=== PATIENT | female | born 1945 | race Asian ===

== ENCOUNTER 2018-07-14 08:14 | Outpatient (REF) | payer MEDICARE, BC, SELFPAY ==
[2018-07-14 18:04] LABS: Anion Gap 8.3 mmol/L (3-11); BUN 15 mg/dL (7-18); CO2 28.7 mmol/L (21.0-32.0); CREATININE 0.75 mg/dL (0.55-1.02); Calcium 9.1 mg/dL (8.5-10.1); Chloride 106 mmol/L (98-107); Cholesterol 184 mg/dL (50-200); Glucose 93 mg/dL (70-100); HCT 41.2 % (36.0-46.0); HDL Cholesterol 72 mg/dL (40-60); HGB 13.9 g/dL (12.0-15.5); LDL CHOLESTEROL 94 mg/dL (<100); Potassium 4.4 mmol/L (3.5-5.1); Sodium 143 mmol/L (136-145); Triglyceride 95 mg/dL (30-150)
== END 2018-07-14 08:34 ==
LOC: NCHCN 08:14
PROVIDERS: PCP Family Medicine; Visit Provider Family Medicine
DX: E78.5 Hyperlipidemia, unspecified (principal)
CPT/HCPCS: 80048; 80061; 83721; 85014; 85018

== ENCOUNTER 2018-09-30 01:14 | Outpatient (CLI) | payer MEDICARE, BC, SELFPAY ==
--- NOTE | 2018-09-30 08:45 | DI.MAMMO_ITS ---
SYMPTOMS/DIAGNOSIS: SCREENING, [facility], Z00.00 MAMMOGRAMS: Mammograms were interpreted according to the usual protocol including computer analysis with CAD system, tomosynthesis and C view imaging. The breasts are heterogeneously dense. No dominant mass or clumped microcalcification is identified in either breast. Current examination is compared with previous examinations including September 2017 and there is increased prominence of a focal area of asymmetric density with a nodular appearance seen in the lateral central portion of the right breast on CC view only. Additional mammographic views of this area are requested to include CC spot compression view of the right breast. CONCLUSION: Additional mammographic views, right breast, requested as described above. Breast ultrasound may be indicated as well depending on the results of the additional mammographic views. Category 0, breast density category D. MQSA ASSESSMENT OF FINDINGS: Incomplete: Needs additional imaging evaluation. Category 0. Patient will receive a letter notifying them of these results. BI-RADS category D. The breasts are extremely dense, which lowers the sensitivity of mammography.
--- NOTE | 2018-09-30 08:59 | DI.RAD_ITS ---
SYMPTOM/DIAGNOSIS: LOW BACK PAIN, M54.5, BACK PAIN LUMBOSACRAL SPINE: Five views were obtained. The intervertebral disc spaces appear well maintained. Mild hypertrophic spurring is noted involving the vertebral endplates and facet joints throughout the lumbar region. Note is made of a sclerotic focus in the right sacral ala measuring roughly 1 cm. in diameter. This was not present on previous radiographs of the spine of 09/2008. Although this may represent a bone island, the possibility of a sclerotic metastasis could not be excluded. Correlation with MRI or bone scan recommended for further evaluation. CONCLUSION: Degenerative changes and question new sclerotic lesion of right sacral ala. Correlation with MRI or bone scan recommended to exclude neoplastic disease. THORACIC SPINE: Two views were obtained and show mild biconvex thoracolumbar scoliosis. Mild hypertrophic spurring of the vertebral endplates is noted throughout the thoracic region and there is mild loss of height of the intervertebral discs. No other focal bony abnormality is seen. CONCLUSION: DJD of the thoracic spine.
== END 2018-09-30 01:34 ==
PROVIDERS: PCP Family Medicine; Visit Provider Family Medicine
DX: Z12.31 Encounter for screening mammogram for malignant neoplasm of breast (principal); R92.8 Other abnormal and inconclusive findings on diagnostic imaging of breast; M54.6 Pain in thoracic spine; M47.815 Spondylosis without myelopathy or radiculopathy, thoracolumbar region; M54.5 Low back pain; M89.8X8 Other specified disorders of bone, other site
CPT/HCPCS: 77063; 77067; 72072; 72110

== ENCOUNTER 2018-10-07 00:50 | Outpatient (CLI) | payer MEDICARE, BC, SELFPAY ==
--- NOTE | 2018-10-07 10:35 | DI.COMBO_ITS ---
SYMPTOMS/DIAGNOSIS: F/U ABNL MAMMO, FOCAL AREA OF ASYMMETRIC DENSITY ADDITIONAL MAMMOGRAPHIC VIEWS RIGHT BREAST AND RIGHT BREAST ULTRASOUND: Additional images are interpreted according to the usual protocol including tomosynthesis and 2D imaging. Additional mammographic views of the right breast and right breast ultrasound are interpreted in conjunction. These examinations were obtained to evaluate questionable area of asymmetric density seen on recent mammogram. Additional mammographic views fail to show a discrete mass. Breast ultrasound shows no evidence of a mass or cyst. CONCLUSION: No specific evidence of malignancy at this time. Follow up unilateral right breast mammogram recommended in 6 months. Category 3. Breast density Category C. MQSA ASSESSMENT OF FINDINGS: Probably benign. Six month follow-up recommended. Category 3. Patient will receive a letter notifying them of these results. Bi-RADS category C. The breasts are heterogeneously dense, which may obscure small masses.
== END 2018-10-07 01:10 ==
PROVIDERS: PCP Family Medicine; Visit Provider Family Medicine
DX: Z12.31 Encounter for screening mammogram for malignant neoplasm of breast (principal); R92.8 Other abnormal and inconclusive findings on diagnostic imaging of breast; N64.59 Other signs and symptoms in breast
CPT/HCPCS: 76642; 77063; 77067

== ENCOUNTER 2018-10-14 00:18 | Outpatient (CLI) | payer MEDICARE, BC, SELFPAY ==
[2018-10-14] MEDS: Gadoterate meglumine 20 ML VIAL 9 ML IVP (09:50)
--- NOTE | 2018-10-14 10:10 | DI.MRI_ITS ---
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 Comparison x-ray is 09/30/18. Comparison DEXA scans are 07/17/14 and 07/01/11. Comparison x-ray of the lumbar spine is 09/27/08. The round sclerotic focus seen in the right sacrum on the x-ray from 09/30/18 can also be visualized on the DEXA scan from 07/17/14. On the current MRI examination the lesion shows low signal on both the T 1 and T 2 weighted images and shows no evidence of enhancement. There is normal marrow signal in the sacrum. The sacroiliac joints appear well maintained. The finding is most suggestive of benign lesion consistent with a bone island. No other similar lesions are appreciated. There is a nonspecific ovoid 0.9 cm lesion in the left sacral ala which shows decreased signal on T 1 and increased signal on T 2 weighted images. It shows increased signal on the post contrast T 2 weighed image. This finding is nonspecific. IMPRESSION: 1. Low T 1 and T 2 weighted round image in the right sacral ala which corresponds to the radiographic finding and is most suggestive of a benign lesion such as bone island. 2. Nonspecific 0.9 cm lesion seen in the left sacral ala. Bone scan should be considered for further evaluation.
== END 2018-10-14 00:38 ==
PROVIDERS: PCP Family Medicine; Visit Provider Family Medicine
DX: M53.3 Sacrococcygeal disorders, not elsewhere classified (principal); M89.9 Disorder of bone, unspecified; R93.7 Abnormal findings on diagnostic imaging of other parts of musculoskeletal system
CPT/HCPCS: 72197

== ENCOUNTER 2018-10-29 00:19 | Outpatient (CLI) | payer MEDICARE, BC, SELFPAY ==
--- NOTE | 2018-10-29 10:00 | DI.NM_ITS ---
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 Comparison MRI is 10/14/18 and x-ray is 09/30/18. There is normal activity seen in the kidneys and urinary bladder. No abnormal increased radiotracer uptake is seen in the sacrum. There is a focus of increased radiotracer uptake seen in the right superior pubic ramus. There is a focus of increased radiotracer uptake seen in the right mid cervical spine, which is likely degenerative. No other abnormal radiotracer uptake is seen in the axial or appendicular skeleton. Increased radiotracer uptake in the shoulder is likely degenerative in nature. IMPRESSION: 1. No significant increased radiotracer uptake in the sacrum. 2. Focus of increased radiotracer uptake in the right superior pubic ramus. Please correlate with x-ray of the pelvis. This area was not included on the MRI of the pelvis or the x-ray of the lumbar spine.
--- NOTE | 2018-10-31 14:57 | DI.VRAD_ITS ---
EXAM: NM Bone and/or Joint, Whole Body EXAM DATE/TIME: 10/29/2018 2:06 PM CLINICAL HISTORY: 72 years old, female; Signs and symptoms; Other: Disorder of pelvic girdle TECHNIQUE: Nuclear bone scan was obtained following the IV administration of 25.1 mCi of [id number]. Anterior and posterior whole body images were then obtained at 2 hours. COMPARISON: No relevant prior studies available. FINDINGS: Increased activity in the right cervical spine most likely degenerative. Increased tracer activity involving the right superior pelvic ramus most likely representing a nondisplaced fracture. Correlation with repeat plain radiography may be helpful. No other abnormal tracer activity. Normal renal activity. IMPRESSION: Findings suggesting a nondisplaced fracture of the right superior pubic ramus. Dictated and Authenticated by: Fidel Montoya MD. Ordering:BEAU Garcia MD
== END 2018-10-29 00:39 ==
PROVIDERS: PCP Family Medicine; Visit Provider Family Medicine
DX: M89.8X8 Other specified disorders of bone, other site (principal); M81.0 Age-related osteoporosis without current pathological fracture
CPT/HCPCS: 78306

== ENCOUNTER 2018-11-12 00:59 | Outpatient (CLI) | payer MEDICARE, BC, SELFPAY ==
--- NOTE | 2018-11-12 08:13 | DI.RAD_ITS ---
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 There is no change in the sclerotic focus in the right sacrum which may represent an ostosis. The sacroiliac joints and symphysis pubis are intact. No suspicious lytic lesions are seen. Soft tissues are unremarkable. IMPRESSION: No acute abnormality. No evidence of an acute or healing fracture or dislocation.
== END 2018-11-12 01:19 ==
PROVIDERS: PCP Family Medicine; Visit Provider Family Medicine
DX: M89.8X8 Other specified disorders of bone, other site (principal)
CPT/HCPCS: 72170

== ENCOUNTER 2019-04-04 00:14 | Outpatient (CLI) | payer MEDICARE, BC, SELFPAY ==
--- NOTE | 2019-04-04 13:59 | DI.MAMMO_ITS ---
SYMPTOMS/DIAGNOSIS: 6 MO F/U ABNL RT MAMMOGRAM RIGHT MAMMOGRAM: Mammograms were interpreted according to the usual protocol including computer analysis with CAD system, tomosynthesis and C view imaging. Today's mammogram was obtained to follow area of questionable asymmetric density of the central portion of the right breast seen on CC view of previous mammogram of September 2018. The findings appear essentially unchanged on today's examination. No new mass or clumped microcalcification seen. CONCLUSION: No specific evidence of malignancy at this time. I would suggest that routine screening examinations resume with a bilateral mammogram in 6 months. Category 3. Breast density Category C. MQSA ASSESSMENT OF FINDINGS: Probably benign. Six month follow-up recommended. Category 3. Patient will receive a letter notifying them of these results Bi-RADS category C. The breasts are heterogeneously dense, which may obscure small masses.
== END 2019-04-04 00:34 ==
PROVIDERS: PCP Family Medicine; Visit Provider Family Medicine
DX: Z12.31 Encounter for screening mammogram for malignant neoplasm of breast (principal); R92.8 Other abnormal and inconclusive findings on diagnostic imaging of breast
CPT/HCPCS: 77061; 77065; G0279

== ENCOUNTER 2019-07-18 14:36 | Outpatient (REF) | payer MEDICARE, BC, SELFPAY ==
[2019-07-18 21:58] LABS: Abs Immature Grans 0.01 k/cumm (0.0-0.09); Absolute Basophil Count 0.03 k/cumm (0.0-0.2); Absolute Eosinophil Count 0.08 k/cumm (0.0-0.7); Absolute Lymphocyte Count 1.66 k/cumm (1.2-3.4); Absolute Monocyte Count 0.48 k/cumm (0.11-0.7); Absolute Neutrophil Count 3.14 k/cumm (1.2-6.7); Basophils % 0.6; Eosinophils % 1.5; HCT 38.1 % (36.0-46.0); HGB 12.8 g/dL (12.0-15.5); Immature Grans % 0.2; Lymphocytes % 30.7; Mean Corp. HGB Concentration 33.6 g/dL (32.0-36.0); Mean Corpuscular Hemoglobin 33.3 pg (27.0-33.0); Mean Corpuscular Volume 99.2 fL (80-95); Mean Platelet Volume 10.2 fL (8.0-11.0); Monocytes % 8.9; Neutrophils % 58.1; Platelet Count 222 x1000/uL (130-400); RBC 3.84 m/cumm (4.00-5.20); RBC Distribution Width 12.5 % (11.7-14.6)
[2019-07-18 22:19] LABS: ALT 18 U/L (14-59); AST 16 U/L (15-37); Albumin 3.8 g/dL (3.4-5.0); Alkaline Phosphatase 68 U/L (46-116); Amylase 84 U/L (25-115); Anion Gap 9.1 mmol/L (3-11); BUN 18 mg/dL (7-18); Bilirubin, Total 0.3 mg/dL (0.2-1.0); CO2 27.9 mmol/L (21.0-32.0); CREATININE 0.69 mg/dL (0.55-1.02); Calcium 8.8 mg/dL (8.5-10.1); Chloride 108 mmol/L (98-107); Glucose 150 mg/dL (74-106); Lipase 231 U/L (73-393); Potassium 3.9 mmol/L (3.5-5.1); Sodium 145 mmol/L (136-145); Total Protein 6.5 g/dL (6.4-8.2)
== END 2019-07-18 14:56 ==
LOC: NCHCN 14:36
PROVIDERS: PCP Family Medicine; Visit Provider Physician Assistant Medical
DX: R11.0 Nausea (principal)
CPT/HCPCS: 80053; 83690; 82150; 85025

== ENCOUNTER 2019-07-25 00:54 | Outpatient (CLI) | payer MEDICARE, BC, SELFPAY ==
--- NOTE | 2019-07-25 08:08 | DI.US_ITS ---
EXAM: US ABDOMEN CLINICAL HISTORY: NAUSEA,R11.0 TECHNIQUE: Ultrasound abdomen performed using standard protocol. FINDINGS: LIVER: There is a 1.5 x 1 x 1.3 centimeter simple cyst in the right lobe of the liver. The liver is otherwise unremarkable. There is hepatopetal flow through the portal vein. GALLBLADDER: No evidence of cholelithiasis. No evidence of wall thickening. No pericholecystic fluid identified. KIDNEYS: Kidneys are symmetric in size. No evidence of renal calculi. No evidence of hydronephrosis. No renal mass or cyst identified. BILIARY SYSTEM: Common bile duct measures 3.4 millimeters. No intrahepatic biliary ductal dilation. LE'S SIGN: Negative. PANCREAS: Normal where visualized. SPLEEN: Not enlarged. ABDOMINAL AORTA AND IVC: Visualized portions normal caliber. ASCITES: None seen. IMPRESSION: 1.5 centimeter simple cyst in the right lobe of the liver. Otherwise unremarkable abdominal ultrasou nd.
== END 2019-07-25 01:14 ==
PROVIDERS: PCP Family Medicine; Visit Provider Physician Assistant Medical
DX: K76.89 Other specified diseases of liver (principal); R11.0 Nausea
CPT/HCPCS: 76700

== ENCOUNTER → 2019-10-11 08:53 | Outpatient (BNVA) | payer MEDICARE, BC, SELFPAY | PROVIDERS: PCP Family Medicine; Referring Provider Family Medicine; Visit Provider Surgery | DX: R11.0 Nausea (principal) | CPT/HCPCS: 99202; 99213 ==

== ENCOUNTER 2019-10-12 07:57 | Day surgery (SDC) | payer MEDICARE, BC, SELFPAY ==
[2019-10-12 08:10] VITALS: BP 157/78; PULSE 72; RESP 18; TEMP 36.6; O2SAT 99
[2019-10-12] MEDS: Lactated Ringers 1,000 ML 80 ML IV (08:27)
--- NOTE | 2019-10-12 08:29 | ENDO_ITS ---
Date of service: 10/12/19 Time of Service: 08:59 Endoscopy Report DATE OF PROCEDURE: 10/12/19 PRE-OP DIAGNOSIS: Intermittent Abdominal discomfort and Nausea POST-OP DIAGNOSIS: other (Gastritis, GAstric polyps and esophagitis) PROCEDURE: EGD with biopsies SURGEON: Nadira Pfeiffer ANESTHESIA: other (General/ ASA 2/ Surinder Moran CRNA) ESTIMATED BLOOD LOSS: 4 PATHOLOGY: other (GAstric bx, gastric polyps bx, GE junction bx) COMPLICATIONS: None DISPOSITION: same day INDICATIONS: Mrs. Mccoy is a pleasant 73-year-old female who comes to the office today to discuss an upper endoscopy. She tells me that April 23 she felt nauseated and did not want to eat. She did not have any vomiting. She could eat and sometimes food would make her nausea go away other times it would not. She continues to have the same symptoms on and off. Some days are very good and she has no symptoms at all and other days she feels nauseated all day. She has no pain. She denies any changes in bowel habits, increased gas or burping. She tells me that she had epigastric pain about 4 years ago and had an upper endoscopy done in [place] which showed some small polyps which were removed other than that everything looked fine. She was recently placed on omeprazole. Some days she thinks it might help a little bit but then other days it does not seem to be doing anything. She has lost weight but it has been a slow weight loss over the last 5 to 6 years. At first she thought it was due to increased stress when her daughter and family moved in with her and her . They live in their home for a year but that was 2 years ago. She does not have any other symptoms. She tells me that she did have an ultrasound done as well which was unremarkable. Risks, benefits and complications have been reviewed. Complications include but are not limited to bleeding, pain, perforation, sore throat, aspiration, and adverse reaction to the medications. Questions were entertained and answered to their satisfaction and they wished to proceed. No guarantees were given or implied. FINDINGS: Inflammation in the antrum. Multiple polyps in the stomach. All benign appearing. Inflammation in the distal esophagus and scarring noted PROCEDURE DESCRIPTION: After informed consent was obtained the patient was take to the procedure room and placed in a supine position. Monitors were applied and a time out was done. The patients name, date of , procedure type, allergies to medications and metal in their body was reviewed. A bite block was placed and the patient was sedated. Once sedated and comfortable the gastroscope was advanced through the oropharynx which was grossly normal into the esophagus. The proximal and mid-esophagus were normal. In the distal esophagus there was inflammation and a Schatzki's ring noted. The scope was advanced into the stomach and through the pylorus into the 3rd portion of the duodenum. The duodenum was noted to be normal. The scope was retracted back into the stomach. There was mild inflammation noted at the pylorus and in the antrum. Biopsies were done to rule out H. pylori. There were no ulcers. The scope was retro-flexed. There was no inflammation noted in the cardia and fundus . There was no hiatal hernia noted. There were multiple small benign fundic polyps throughout the stomach. Random biopsies of some of the polyps were done. The scope was retracted back into the esophagus and biopsies were done of the GE junction to rule out Erazo's. There was mild inflammation and a Schatzki's ring was noted. The GE junction was at 35 cm. The scope was removed and the patient was woken up and taken back to [facility] in stable condition. Follow up: 2-3 weeks in the office. I will add Carafate for 2 weeks and see if that helps as well as increase the dose of the omeprazole.
--- NOTE | 2019-10-12 08:30 | PDOC.DSDIS_ITS ---
Discharge Plan Disposition Patient Disposition: HOME Condition: Good Discharge Details Reason For Visit: Intermittent Abdominal discomfort and nausea Attending Provider: Nadira Pfeiffer Primary Care Provider: Radha Maria V Home Meds and New Rx's Prescriptions: New omeprazole 40 mg capsule,delayed release(DR/EC) 40 mg PO DAILY Qty: 30 RF: 0 sucralfate [Carafate] 1 gram tablet 1 gm PO QID Qty: 56 RF: 0 Continued metoprolol succinate [Toprol XL] 25 mg tablet extended release 24 hr 25 mg PO DAILY RF: 0 atorvastatin [Lipitor] 10 MG tablet 5 mg PO DAILY Qty: 1 RF: 0 calcium carbonate [Calcium 600] 600 MG tablet 600 mg PO DAILY Qty: 1 RF: 0 cholecalciferol (vitamin D3) 1,000 UNIT capsule 1,000 unit PO DAILY Qty: 1 RF: 0 Fish Oil 1 EACH capsule 2 ea PO DAILY Qty: 2 RF: 0 GLUCOSAMINE \T\ CHONDROITIN CAP 1 EACH capsule 1 ea PO DAILY Qty: 1 RF: 0 cyanocobalamin (vitamin B-12) 2,500 MCG tablet 2,500 mcg PO DAILY RF: 0 zoledronic fuka-ijrhkuoj-mqtle [Reclast] 5 MG/100 ML piggyback 5 mg IV once a year RF: 0 Discontinued omeprazole 20 mg capsule,delayed release(DR/EC) 20 mg PO DAILY RF: 0 Discharge Instructions Instructions: Gastritis (DC), Diet for Stomach Ulcers and Gastritis (GEN), Esophagitis (DC) Additional Instructions: Findings: Mild inflammation of the stomach and esophagus Benign polyps in the stomach Follow up: 2 weeks Medications: Increase your Omeprazole to 40 mg daily (new prescription sent in) Carafate 1 g 30 minutes before breakfast, lunch and dinner and at bedtime for 2 weeks Please call if you develop: fevers >101.5 Nausea or Vomiting Abdominal pain that is not transient DAY SURGERY UNIT POST ENDOSCOPY INSTRUCTIONS 1. Because there will be medication in your system for the next 24 hours, you may feel a little sleepy. Your coordination will be affected. Therefore: a. Do not drive or operate dangerous equipment for 24 hours. b. Do not drink alcohol beverages for 24 hours (not even beer). c. Plan to go home and rest for the day. 2. Generally there are no restrictions on your activity after a day or so has gone by, but you may feel a bit fatigued for a few days. 3 After you arrive home you may have a light meal and return to a normal diet as you can tolerate it without feeling sick to your stomach. 4. After surgery, you may feel pain or discomfort. This should be only transient, but if it persists please contact your doctor. 5. If there are any questions regarding the findings of your procedure, please feel free to contact your doctor. 6. If you are unable to contact your doctor with a problem, contact the hospital at [phone]. 7. Continue all your regular medications unless directed otherwise. I understand the above instructions and have no questions. Signature of Patient or Responsible Adult Escort Date/Time Name of Responsible Adult Escort Signature of Nurse Date/Time Referrals: Nadira Pfeiffer MD [ [facility] STAFF PHYSICIAN] - 10/25/19 8:30 am Activity:: Activity as Tolerated Diet:: As Tolerated Discharge Orders Discharge Orders: Discharge Order (Routine); Ordered 10/12/19 Ordered By: Nadira Pfeiffer
--- NOTE | 2019-10-12 08:50 | STOM_PTH ---
PATIENT: Courtney Mccoy I LOC: [facility] U#:[id number] AGE/SX: 73/F ROOM: RE10/12/[address]: Nadira Pfeiffer MD : [id number] BED: DIS: 10/12/2019 SPEC #: [id number] RECD: 10/12/19 12:47 STATUS: LUPIS REQ #: [id number] LISETTE: 10/12/19 08:[address]: Nadira Pfeiffer DEPT: Surgical Specimen RECD BY: Tabitha Mireles ENTERED: 10/12/19 12:49 SP TYPE: STOMACH OTHR DR: Radha Maria V Tissues: 1 - STOMACH BIOPSY 2 - STOMACH BIOPSY 3 - ESOPHAGUS BIOPSY Procedures: GROSS AND MICRO LEVEL 4 Comments: [id number]
[2019-10-12 09:09] VITALS: BP 102/59; PULSE 64; RESP 18; O2SAT 96
[2019-10-12 09:30] VITALS: BP 125/65; PULSE 60; RESP 18; TEMP 36; O2SAT 97
== END 2019-10-12 10:05 | disposition home or self-care (01) ==
PROVIDERS: PCP Family Medicine; Visit Provider Surgery
PROC: 0DJ68ZZ Inspection of Stomach, Via Natural or Artificial Opening Endoscopic (ICD-10-PCS; CPT 43235; principal; 2019-10-12 09:00)
DX: R11.0 Nausea (principal); K29.60 Other gastritis without bleeding; K31.7 Polyp of stomach and duodenum; K21.0 Gastro-esophageal reflux disease with esophagitis; K22.2 Esophageal obstruction
CPT/HCPCS: 43239; 88305

== ENCOUNTER 2019-10-19 01:40 | Outpatient (CLI) | payer MEDICARE, BC, SELFPAY ==
--- NOTE | 2019-10-19 | DI.MAMMO_ITS ---
EXAM: MG MAMMO SCREENING CLINICAL HISTORY: HEALTH SCREENING Z13.9, HX OF ABNORMAL MAMMO. TECHNIQUE: Bilateral full field digital CC and MLO mammographic images were obtained with 3D tomosyn thesis and utilizing computer aided detection (CAD). COMPARISON: 2009 through 2018 FINDINGS: Masses/Architectural Distortion: None seen. Microcalcifications: No suspicious pleomorphic-type are seen. Skin Thickening/Nipple Retraction: None. IMPRESSION: 1. No significant interval change with no specific features of malignancy noted. 2. Unless there is more urgent need, annual screening mammography is recommended, as per [place] [employer] guidelines. ACR BI-RAD Category- 1 Negative Breast Density Category D: The mammogram demonstrates the patient's breast tissue is dense. Dense juan ast tissue is very common and is not abnormal but dense breast tissue can make it harder to find canc er on a mammogram. Also, dense breast tissue may increase their breast cancer risk. This information about the result of the mammogram report was provided to the patient to raise their awareness. Use th is report when you speak with the patient about their risks for breast cancer, which includes their f amily history. At that time, you may recommend for more screening tests (Ultrasound or MRI) as they m ight be useful based on their risk. A negative radiographic report should not delay biopsy if a dominant or clinically suspicious mass is present. Up to ten percent of cancers are not identified on mammography. A negative report may reinforce clinical impression. Adenosis and dense breasts may obscure an underlying neoplasm. False positive reports average 6 to 10%.
== END 2019-10-19 02:00 ==
PROVIDERS: PCP Family Medicine; Visit Provider Family Medicine
DX: Z12.31 Encounter for screening mammogram for malignant neoplasm of breast (principal)
CPT/HCPCS: 77063; 77067

== ENCOUNTER → 2019-10-25 08:31 | Outpatient (BNVA) | payer MEDICARE, BC, SELFPAY | PROVIDERS: PCP Family Medicine; Referring Provider Family Medicine; Visit Provider Surgery | DX: R11.0 Nausea (principal); Z48.89 Encounter for other specified surgical aftercare; K21.0 Gastro-esophageal reflux disease with esophagitis; K29.60 Other gastritis without bleeding | CPT/HCPCS: 99212; 99213 ==

== ENCOUNTER → 2019-11-08 08:30 | Outpatient (BNVA) | payer MEDICARE, BC, SELFPAY | PROVIDERS: PCP Family Medicine; Referring Provider Family Medicine; Visit Provider Surgery | DX: R11.0 Nausea (principal) | CPT/HCPCS: 99213 ==

== ENCOUNTER 2019-12-30 02:07 | Outpatient (CLI) | payer MEDICARE, BC, SELFPAY ==
--- NOTE | 2019-12-30 06:45 | DI.NM_ITS ---
EXAM: NM HEPATOBILIARY CCK GRP CLINICAL HISTORY: RUQ/ Epigastric pain. Normal Galbladder US,R10.11. TECHNIQUE: Injected dose: 4.5 mCi Tc-99 mebrofenin Initial dynamic images: 60 minutes Post-Gallbladder fillin.02 mcg/kg CCK intravenously over a 60 minute infusion. Addition images: 45 minute dynamic during CCK administration. COMPARISON: US US ABDOMEN from 07/25/2019 FINDINGS: Normal hepatic transit time. Prompt excretion into the small bowel. Prompt excretion into the gallbladder The gallbladder ejection fraction is normal at 63 percent. No symptoms were experienced during the C CK infusion. IMPRESSION: 1. No evidence of acute cholecystitis or acalculous disease. Normal gallbladder ejection fraction SN guidelines: Gallbladder visualization should be present by 3 hours. Delayed flcgrbl-qv-fsuxm ascencio sit beyond 60 min raises the suspicion for partial common bile duct (CBD) obstruction. Gallbladder ejection fraction <35% has a good correlation with acalculous disease (i.e., chronic acal culous cholecystitis, cystic duct syndrome, sphincter of Oddi disease).
[2019-12-30] MEDS: Sincalide 5 MCG VIAL 0.7 MCG IJ (12:08)
== END 2019-12-30 02:27 ==
PROVIDERS: PCP Family Medicine; Visit Provider Surgery
DX: R10.11 Right upper quadrant pain (principal); R10.13 Epigastric pain
CPT/HCPCS: 78227

== ENCOUNTER 2020-04-09 08:24 | Outpatient (REF) | payer MEDICARE, BC, SELFPAY ==
[2020-04-09 20:19] LABS: ALT 22 U/L (14-59); AST 16 U/L (15-37); Albumin 4.1 g/dL (3.4-5.0); Alkaline Phosphatase 59 U/L (46-116); Anion Gap 7.4 mmol/L (3-11); BUN 16 mg/dL (7-18); Bilirubin, Total 0.7 mg/dL (0.2-1.0); CO2 29.6 mmol/L (21.0-32.0); CREATININE 0.71 mg/dL (0.55-1.02); Calcium 9.1 mg/dL (8.5-10.1); Calculated LDL 90 mg/dL (<100); Chloride 108 mmol/L (98-107); Cholesterol 184 mg/dL (<200); Glucose 91 mg/dL (74-106); HDL Cholesterol 74 mg/dL (40-60); Potassium 4.3 mmol/L (3.5-5.1); Sodium 145 mmol/L (136-145); Total Protein 6.9 g/dL (6.4-8.2); Triglyceride 100 mg/dL (<150)
[2020-04-09 20:37] LABS: Vitamin D 25 Total 58.6 ng/ml (30-100)
== END 2020-04-09 08:44 ==
LOC: NCHCN 08:24
PROVIDERS: PCP Family Medicine; Visit Provider Family Medicine
DX: R03.0 Elevated blood-pressure reading, without diagnosis of hypertension (principal); E78.5 Hyperlipidemia, unspecified; R73.03 Prediabetes; M81.0 Age-related osteoporosis without current pathological fracture
CPT/HCPCS: 80053; 80061; 82306

== ENCOUNTER 2021-01-24 08:10 | Outpatient (REF) | payer MEDICARE, BC, SELFPAY ==
[2021-01-24 16:18] LABS: ALT 25 U/L (14-59); AST 19 U/L (15-37); Alkaline Phosphatase 80 U/L (46-116); Anion Gap 6.9 mmol/L (3-11); BUN 18 mg/dL (7-18); Bilirubin, Total 0.6 mg/dL (0.2-1.0); CO2 30.1 mmol/L (21.0-32.0); CREATININE 0.7 mg/dL (0.55-1.02); Calcium 9.2 mg/dL (8.5-10.1); Chloride 108 mmol/L (98-107); Glucose 98 mg/dL (74-106); Potassium 4.3 mmol/L (3.5-5.1); Sodium 145 mmol/L (136-145); Total Protein 6.9 g/dL (6.4-8.2)
[2021-01-25 10:51] LABS: Lyme Ab w Rflx to Lyme Confirm Negative (Negative)
== END 2021-01-24 08:11 | disposition home or self-care (01) ==
LOC: NCHCN 08:10
PROVIDERS: PCP Family Medicine; Visit Provider Family Medicine
DX: W57.XXXA Bitten or stung by nonvenomous insect and other nonvenomous arthropods, initial encounter (principal); T14.8XXA Other injury of unspecified body region, initial encounter
CPT/HCPCS: 80053; 86618

== ENCOUNTER 2021-02-12 01:24 | Outpatient (CLI) | payer MEDICARE, BC, SELFPAY ==
--- NOTE | 2021-02-12 | DI.MAMMO_ITS ---
Exam(s) MAMMO SCREENING EXAM: MAMMO SCREENING CLINICAL HISTORY: SCREENING, [facility],Z00.00 TECHNIQUE: Mammograms were interpreted according to the usual protocol including computer analysis w MeroArte system, tomosynthesis and C-view imaging. COMPARISON: FINDINGS: The breasts are very dense. No dominant mass or clumped microcalcification identified in either [address]. Current examination is compared with previous examinations including September 2019 and there has been no gross interval change in appearance in comparison with the prior studies. IMPRESSION: No specific evidence of malignancy at this time. Routine screening examinations are suggested at yea rly intervals in this age group according to the ACS ACR guidelines. BI-RADS Category 1 - Negative Breast Density - Category D - Extremely dense
== END 2021-02-12 01:44 ==
PROVIDERS: PCP Family Medicine; Visit Provider Family Medicine
DX: Z00.00 Encounter for general adult medical examination without abnormal findings (principal); Z12.31 Encounter for screening mammogram for malignant neoplasm of breast
CPT/HCPCS: 77063; 77067

== ENCOUNTER 2021-03-08 03:33 | Outpatient (CLI) | payer MEDICARE, BC, SELFPAY ==
[2021-03-10 17:30] LABS: Anaplasma phagocytophilum Negative (Negative); B. miyamotoi PCR Negative (Negative); Babesia divergens/MO-1 Negative (Negative); Babesia duncani Negative (Negative); Babesia microti Negative (Negative); Ehrlichia chaffeensis Negative (Negative); Ehrlichia ewingii/canis Negative (Negative); Ehrlichia muris eauclairensis Negative (Negative)
[2021-03-11 11:22] LABS: Lyme Ab w Rflx to Lyme Confirm Negative (Negative)
== END 2021-03-08 03:34 | disposition home or self-care (01) ==
LOC: LBO 03:38
PROVIDERS: PCP Family Medicine; Visit Provider Family Medicine
DX: W57.XXXA Bitten or stung by nonvenomous insect and other nonvenomous arthropods, initial encounter (principal); T14.8XXA Other injury of unspecified body region, initial encounter
CPT/HCPCS: 36415; 87798; 86618

== ENCOUNTER → 2021-10-03 12:56 | Outpatient (BNVA) | payer MEDICARE, BC, SELFPAY | PROVIDERS: PCP Nurse Practitioner Family; Referring Provider Nurse Practitioner Family; Visit Provider Physical Therapy Assistant | DX: L72.8 Other follicular cysts of the skin and subcutaneous tissue (principal); I10 Essential (primary) hypertension | CPT/HCPCS: 99213 ==

== ENCOUNTER → 2022-02-17 01:59 | Outpatient (CLI) | payer MEDICARE, BC, SELFPAY ==
--- NOTE | 2022-02-17 | DI.MAMMO_ITS ---
Exam(s) MAMMO SCREENING EXAM: MAMMO SCREENING CLINICAL HISTORY: SCREENING, Z12.39. TECHNIQUE: Bilateral full field digital CC and MLO mammographic images were obtained with 3D tomosyn thesis and utilizing computer aided detection (CAD). COMPARISON: Prior mammograms were reviewed, the most recent being January 2021. FINDINGS: The fibroglandular tissue pattern is again noted be quite dense, this somewhat decreasing the sensiti vity mammogram for finding hidden underlying lesions There are no new obvious spiculated masses nor malignant appearing microcalcification groups. There is no significant architectural distortion nor skin thickening-retraction. IMPRESSION: Dense bilateral fibroglandular tissue. No obvious radiographic evidence of malignancy nor significan t change compared to prior studies. BI-RADS Category 1 - Negative Breast Density - Category D - Extremely dense Breast density Category C or D implies that the patient has dense breast tissue. Dense breast tissue can make it harder to find cancer on a mammogram. Dense breast tissue is also associated with an incr eased risk of breast cancer. This information about the result of the mammogram report was provided to the patient to raise their awareness. Use this report when you speak with the patient about their risks for breast cancer, which includes their family history. At that time, you may recommend additional screening tests (Ultrasoun d or MRI) as these tests may add significant information. A negative radiographic report should not delay biopsy if a dominant or clinically suspicious mass is present. Up to ten percent of cancers are not identified on mammography. A negative report may reinforce clinical impression. Adenosis and dense breasts may obscure an underlying neoplasm. False positive reports average 6 to 10%. Patient will receive a letter notifying them of these results.
== END ==
PROVIDERS: PCP Family Medicine; Visit Provider Nurse Practitioner Family
DX: Z12.31 Encounter for screening mammogram for malignant neoplasm of breast (principal)
CPT/HCPCS: 77063; 77067

== ENCOUNTER → 2022-03-06 01:25 | Outpatient (CLI) | payer MEDICARE, BC, SELFPAY ==
--- NOTE | 2022-03-06 09:30 | DI.US_ITS ---
Exam(s) US BREAST LT COMPLETE US BREAST RT COMPLETE EXAM: US BREAST bilateral COMPLETE CLINICAL HISTORY: BILATERAL DENSE BREASTS ON MAMMO OF 02/17/22 TECHNIQUE: Ultrasound right breast performed using standard protocol. COMPARISON: [facility] MAMMO SCREENING from 02/17/2022 FINDINGS: All 4 quadrants of both breast were evaluated sonographically including the retroareolar regions and the axilla. No solid or cystic masses, hypoechoic foci, areas of abnormal shadowing, or areas of ski n thickening. IMPRESSION: 1. No sonographically suspicious finding. 2. Yearly mammography is recommended. 3. Findings were discussed with the patient on the date of the examination. BI-RADS Category 1 - Negative DATA REPOSITORY:
--- NOTE | 2022-03-06 09:30 | DI.US_ITS ---
Exam(s) US BREAST LT COMPLETE US BREAST RT COMPLETE EXAM: US BREAST bilateral COMPLETE CLINICAL HISTORY: BILATERAL DENSE BREASTS ON MAMMO OF 02/17/22 TECHNIQUE: Ultrasound right breast performed using standard protocol. COMPARISON: [facility] MAMMO SCREENING from 02/17/2022 FINDINGS: All 4 quadrants of both breast were evaluated sonographically including the retroareolar regions and the axilla. No solid or cystic masses, hypoechoic foci, areas of abnormal shadowing, or areas of ski n thickening. IMPRESSION: 1. No sonographically suspicious finding. 2. Yearly mammography is recommended. 3. Findings were discussed with the patient on the date of the examination. BI-RADS Category 1 - Negative DATA REPOSITORY:
== END ==
PROVIDERS: PCP Family Medicine; Visit Provider Nurse Practitioner Family
DX: Z12.31 Encounter for screening mammogram for malignant neoplasm of breast (principal); R92.8 Other abnormal and inconclusive findings on diagnostic imaging of breast
CPT/HCPCS: 76642

== ENCOUNTER → 2022-05-07 12:18 | Outpatient (CLI) | payer MEDICARE, BC, SELFPAY ==
--- NOTE | 2022-05-07 10:30 | DI.RAD_ITS ---
Exam(s) XR HIP RT COMPLETE AP PELVIS EXAM: XR HIP RT COMPLETE AP PELVIS CLINICAL HISTORY: RIGHT HIP PAIN---M25.551. TECHNIQUE: 2D digital imaging was performed. COMPARISON: CR XR pelvis AP from 11/12/2018 FINDINGS: Two views No evidence of pelvic nor hip fracture. No hip joint space narrowing. Additional lateral view of th e right hip is unremarkable. Incidentally noted is a small sclerotic density in the right-side of the sacrum. This possibly a bon e island. IMPRESSION: DATA REPOSITORY: RADIATION DOSE DELIVERED:
== END ==
PROVIDERS: PCP Family Medicine; Visit Provider Physician Assistant Medical
DX: G89.11 Acute pain due to trauma (principal); M25.551 Pain in right hip; W19.XXXA Unspecified fall, initial encounter
CPT/HCPCS: 73502

== ENCOUNTER 2022-05-22 17:48 | Outpatient (REF) | payer MEDICARE, BC, SELFPAY ==
[2022-05-22 16:37] LABS: BUN 16 mg/dL (7-18); CREATININE 0.9 mg/dL (0.55-1.02); Calcium 9.8 mg/dL (8.5-10.1); Chloride 102 mmol/L (98-107); Estimated GFR 67.08 (mL/min/1.73m2); Glucose 105 mg/dL (74-106); Potassium 4.2 mmol/L (3.5-5.1); Sodium 139 mmol/L (136-145)
== END 2022-05-22 17:49 | disposition home or self-care (01) ==
LOC: NCHCN 17:48
PROVIDERS: PCP Family Medicine; Visit Provider Nurse Practitioner Family
DX: R19.7 Diarrhea, unspecified (principal)
CPT/HCPCS: 80048

== ENCOUNTER → 2022-08-13 11:01 | Outpatient (CLI) | payer MEDICARE, BC, SELFPAY ==
--- NOTE | 2022-08-13 | DI.RAD_ITS ---
Exam(s) XR RIBS LT W PA LAT CHEST EXAM: XR RIBS LT W PA LAT CHEST CLINICAL HISTORY: LT SIDED RIB PAIN, R07.81. TECHNIQUE: 2D digital imaging was performed. COMPARISON: CR XR thoracic spine complete from 09/30/2018 FINDINGS: Total = 7 views Left ribs-four views: There is a subtle irregularity of the cortex of the lateral aspect of the left 11th rib. This may represent a subtle nondisplaced fracture, particularly since the cutaneous BB mar ker is exactly over this region. No other focal left rib findings. No rib lesions. Chest x-ray: Heart size normal. The mediastinum is not widened. There are no infiltrates nor pleural effusions. No pneumothorax. No compression fractures in the thoracic spinal column. Mild thoracolumbar scolio sis noted. IMPRESSION: Subtle nondisplaced subacute appearing fracture of the left 11th rib. This is immediately subjacent to the region of interest skin marker. No acute pulmonary findings. No pneumothorax. DATA REPOSITORY: RADIATION DOSE DELIVERED:
== END ==
PROVIDERS: PCP Family Medicine; Visit Provider Physician Assistant Medical
DX: R07.81 Pleurodynia (principal); S22.32XA Fracture of one rib, left side, initial encounter for closed fracture; X58.XXXA Exposure to other specified factors, initial encounter
CPT/HCPCS: 71046; 71100

== ENCOUNTER 2022-12-29 15:18 | Outpatient (CLI) | payer MEDICARE, BC, SELFPAY ==
[2022-12-29 13:24] LABS: Anion Gap 7.1 mmol/L (3-11); BUN 17 mg/dL (7-18); CO2 30.9 mmol/L (21.0-32.0); CREATININE 0.8 mg/dL (0.55-1.02); Calcium 9.8 mg/dL (8.5-10.1); Chloride 104 mmol/L (98-107); Estimated GFR 76.79 (mL/min/1.73m2); Glucose 115 mg/dL (74-106); Sodium 142 mmol/L (136-145)
[2022-12-29 13:32] LABS: Hemoglobin A1C 5.9 % (<5.7)
[2022-12-29 13:51] LABS: Vitamin D 25 Total 46.3 ng/mL (30-100)
== END 2022-12-29 15:19 | disposition home or self-care (01) ==
LOC: LBO 15:18
PROVIDERS: PCP Family Medicine; Visit Provider Internal Medicine Endocrinology, Diabetes & Metabolism
DX: E11.9 Type 2 diabetes mellitus without complications (principal); E55.9 Vitamin D deficiency, unspecified; M81.8 Other osteoporosis without current pathological fracture
CPT/HCPCS: 36415; 80048; 82306; 82523; 83036

== ENCOUNTER 2022-12-30 09:14 | Outpatient (REF) | payer MEDICARE, BC, SELFPAY ==
[2023-01-01 16:47] LABS: Creatinine, U 118 mg/dL; NTX 198 nmol/L; NTX-Telopedptide, U 19 nmol/mmol
== END 2022-12-30 09:15 | disposition home or self-care (01) ==
LOC: LBN 09:14
PROVIDERS: PCP Family Medicine; Visit Provider Internal Medicine Endocrinology, Diabetes & Metabolism
DX: E11.9 Type 2 diabetes mellitus without complications (principal); E55.9 Vitamin D deficiency, unspecified
CPT/HCPCS: 82523

== ENCOUNTER 2023-01-26 10:36 | Outpatient (CLI) | payer MEDICARE, BC, SELFPAY ==
--- NOTE | 2023-01-26 | DI.RAD_ITS ---
Exam(s) XR CERVICAL SPINE COMP 4-5V EXAM: XR CERVICAL SPINE COMP 4-5V CLINICAL HISTORY: CERVICALGIA M54.2. TECHNIQUE: 2D digital imaging was performed. Five images were obtained. AP, odontoid, lateral and bi lateral oblique images were obtained. COMPARISON: CT NECK WITH CONTRAST from 02/19/2011 FINDINGS: The odontoid is intact. The lateral masses are well aligned. The bones are osteopenic. There is no rmal alignment of the cervical spine. There is disc space narrowing at C5-6 and C6-C7. Endplate oste ophytes are seen at multiple levels but particularly at C5-6 and C6-C7. Degenerative changes of the facets are seen at multiple levels. No acute fracture or subluxation is present. There is mild neura l foraminal narrowing from C4-5 through C6-C7 on the left. There is mild narrowing at C5-C6 on the r ight. The cervical thoracic junction is well maintained. Atherosclerosis is present. Lung apices ar e clear. IMPRESSION: Moderate degenerative changes in the cervical spine as described. DATA REPOSITORY: RADIATION DOSE DELIVERED:
== END 2023-01-26 10:56 ==
LOC: DI 10:37
PROVIDERS: PCP Family Medicine; Visit Provider Family Medicine
DX: M25.78 Osteophyte, vertebrae (principal)
CPT/HCPCS: 72050

== ENCOUNTER 2023-02-09 10:33 | Outpatient (REF) | payer MEDICARE, BC, SELFPAY ==
[2023-02-09 17:24] LABS: ESR 13 mm/hr (0-30)
[2023-02-09 17:55] LABS: C-Reactive Protein 0.05 mg/dL (0.0-0.3)
== END 2023-02-09 10:34 | disposition home or self-care (01) ==
LOC: NCHCN 10:33
PROVIDERS: PCP Family Medicine; Visit Provider Family Medicine
DX: M89.8X8 Other specified disorders of bone, other site (principal); R51.9 Headache, unspecified
CPT/HCPCS: 85652; 86140

== ENCOUNTER → 2023-03-12 13:53 | Outpatient (BNVA) | payer MEDICARE, BC, SELFPAY | PROVIDERS: PCP Family Medicine; Referring Provider Family Medicine; Visit Provider Nurse Practitioner Adult Health | DX: G43.109 Migraine with aura, not intractable, without status migrainosus (principal); I10 Essential (primary) hypertension | CPT/HCPCS: 99204; 99214 ==

== ENCOUNTER → 2023-07-15 01:40 | Outpatient (CLI) | payer MEDICARE, BC, SELFPAY ==
--- NOTE | 2023-07-15 | DI.MAMMO_ITS ---
Exam(s) MAMMO SCREENING EXAM: MAMMO SCREENING CLINICAL HISTORY: SCREENING,Z12.39 TECHNIQUE: Mammograms were interpreted according to the usual protocol including computer analysis w [employer] CAD system, tomosynthesis and C-view imaging. COMPARISON: 2013 through 2021 FINDINGS: The breasts are composed of heterogeneously dense fibroglandular densities, Breast Density category C . No suspicious masses or suspicious microcalcifications are seen. No skin thickening or abnormal axillary lymph nodes are seen. There has been no significant change from prior exams. IMPRESSION: BI-RADS Category 1, Negative mammogram. Yearly screening mammography is recommended. Breast Density Category C, heterogeneously Dense. The mammogram demonstrates the patient's breast tissue is dense. Dense breast tissue is very common a nd is not abnormal but dense breast tissue can make it harder to find cancer on a mammogram. Also, de nse breast tissue may increase breast cancer risk. This information about the result of the mammogram report was provided to the patient to raise their awareness. Use this report when you speak with the patient about their risks for breast cancer, which includes their family history. At that time, you may recommend additional screening tests (Ultrasound or MRI) as they might be useful based on their r isk. A negative radiographic report should not delay biopsy if a dominant or clinically suspicious mass is present. Up to ten percent of cancers are not identified on mammography. A negative report may reinforce clinical impression. Adenosis and dense breasts may obscure an underlying neoplasm. False positive reports average 6 to 10%.
--- NOTE | 2023-07-15 | DI.RAD_ITS ---
Exam(s) XR HIP LT COMPLETE AP PELVIS EXAM: XR HIP LT COMPLETE AP PELVIS CLINICAL HISTORY: LT HIP PAIN, M25.559. TECHNIQUE: 2D digital imaging was performed. Two views. COMPARISON: CR XR HIP RT COMPLETE AP PELVIS from 05/07/2022 FINDINGS: BONES: No acute fracture is present. No bony destructive lesion is seen. Bone island again noted righ t upper sacrum. JOINTS: No dislocation present. Hip joint spaces are maintained. Mild acetabular spurring. Mild s purring at the margin of the femoral heads. SI joints and pubic symphysis are unremarkable. SOFT TISSUE: Normal. IMPRESSION: Mild degenerative changes of the hips. DATA REPOSITORY: RADIATION DOSE DELIVERED:
== END ==
PROVIDERS: PCP Family Medicine; Visit Provider Family Medicine
DX: M16.0 Bilateral primary osteoarthritis of hip (principal); Z12.31 Encounter for screening mammogram for malignant neoplasm of breast
CPT/HCPCS: 77063; 77067; 73502

== ENCOUNTER 2023-08-09 13:03 | Emergency (ER) | payer MEDICARE, BC, SELFPAY ==
[2023-08-09] VITALS (26 sets, daily range): BP systolic 133–201; BP diastolic 57–86; PULSE 58–83; RESP 9–21; TEMP 36.6; O2SAT 96–100
--- NOTE | 2023-08-09 13:15 | DI.CT_ITS ---
Exam(s) CT BRAIN NECK CTA EXAM: CT BRAIN NECK CTA CLINICAL HISTORY: diagnosed with devi's palsy, R facial droop. TECHNIQUE: Imaging Protocol: Axial CT angiography was performed with multi-slice acquisition and mu lti-planar and/or 3D reconstructions. CONTRAST MATERIAL: Intravenous: Omnipaque 350 Contrast volume:structured data in ml COMPARISON: No exams were available for comparison FINDINGS: CTA Neck W: Aortic arch anatomy: The aortic arch anatomy is conventional and there is no significant stenosis at the origin of the great vessels off of the aortic arch. No intimal flap evident. Anterior circulation: Both common carotid arteries ascend with normal luminal diameters. At the level the carotid bulbs and proximal internal carotid arteries there is minimal plaque without hemodynamically significant stenosis evident. Posterior circulation: Both vertebral arteries originate in conventional fashion off of the subclavian arteries and there is no obvious stenosis at the origin of the vertebral arteries. Both vertebral arteries exhibit normal luminal diameters within the foramen transversarium. Both vertebral arteries contribute to the formation of the basilar artery at the skull base. CTA Brain W: Anterior circulation: Both internal carotid arteries are patent in the skull base-carotid canals as well as within the cave rnous sinuses. The supraclinoid aspects of the ICAs are patent. Both A1 segments are patent as are the anterior cer ebral arteries and there is no evidence of aneurysm at the level of the anterior communicating artery . Both middle cerebral arteries are patent with no evidence of significant stenosis nor intraluminal th rombus. There also no aneurysms of these vessels. Posterior circulation: The basilar artery ascends in the midline. Distally it gives off patent bilateral superior cerebella r arteries. Above this level the basilar artery terminates as patent bilateral posterior cerebral arteries. There is no evidence of aneurysm at the tip of the basilar artery nor elsewhere in the dvscrl-pi-Adwn is. CT BRAIN: There is no evidence of intracranial hemorrhage, mass effect, or shift of midline structures. There are no extra-axial fluid collections. Ventricles are not enlarged or shifted. There are no ring enh ancing lesions in the brain and no abnormal meningeal enhancement. IMPRESSION: 1. Patent carotid arteries in the neck. No hemodynamically significant stenosis. 2. Patent vertebral arteries. 3. Patent intracranial arteries. 4. No acute intracranial findings. No ring enhancing lesions in the brain. If clinically indicated follow-up MRI can be performed RADIATION DOSE DELIVERED: Total DLP DATA REPOSITORY: All CT scans at this facility are submitted to the National Radiology Data Registry (NRDR) Dose Index Registry (DIR) with the [employer] (ACR). RADIATION OPTIMIZATION: All CT scans at this facility use at least one of these dose optimization te chniques: automated exposure control; mA and/or kV adjustment per patient size (includes targeted exa ms where dose is matched to clinical indication); or iterative reconstruction.
--- NOTE | 2023-08-09 13:15 | RT.EKG_ITS ---
APPROVED REPORT Exam: Resting ECG Reason for Exam: baseline/screening Patient Location: E HR:63 bpm ECG Measurements Heart Rate 63 AXIS AZ 144 P 67 QRSd 76 QRS 5 QT 398 T 32 QTc 409 Conclusion Sinus rhythm...normal P axis, V-rate 60- 99
--- NOTE | 2023-08-09 13:17 | W.ED.GENAD ---
Discharge Plan Discharge Details Chief Complaint: GenMedical Primary Care Provider: Radha Maria V ED Provider: Natanael Amaya Home Meds and New Rx's Prescriptions: No Action atorvastatin [Lipitor] 10 MG tablet 5 mg PO DAILY Qty: 1 calcium carbonate [Calcium 600] 600 MG tablet 600 mg PO DAILY Qty: 1 cholecalciferol (vitamin D3) 1,000 UNIT capsule 1,000 unit PO DAILY Qty: 1 Fish Oil 1 EACH capsule 2 ea PO DAILY Qty: 2 GLUCOSAMINE \T\ CHONDROITIN CAP 1 EACH capsule 1 ea PO DAILY Qty: 1 cyanocobalamin (vitamin B-12) 2,500 MCG tablet 2,500 mcg PO DAILY zoledronic rlyq-esxwwnfs-skhtv [Reclast] 5 MG/100 ML piggyback 5 mg IV once a year Patient Comments: 10/11/19 Pt states last dose 2018. PG 4.14.17 not sure of dosage, pt states she gets an infusion once a year.HE propranolol 10 mg tablet 10 mg PO BID magnesium 250 mg tablet 325 mg PO DAILY amitriptyline 10 mg tablet 10 mg PO DAILY PRN Patient Comments: TAKE 1 TABLET BY MOUTH EVERY NIGHT NEEDED FOR GI SYMPTOMS Medical Decision Making This dictation utilizes hvhor-wg-rleq dictation software and may contain unedited grammatical errors. 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 Patients symptoms onset this past Thursday (Day 5) and is well outside any window for intervention. Onset and characteristics include isolated facial symptoms, R corner of mouth droop, R eyelid droop, inability to wrinkle R forehead. Patients' medical history: Recurrent UTI, hypertension, prediabetes, cervicalgia, occipital headache, hyperlipidemia, vitreous detachment, migraine. Family and social history: noncontributory, lives at home with . Pertinent exam findings / vital signs include R sided facial palsy involving forehead, otherwise neurologically intact in bilateral UEs and LEs, sensation diffusely intact, no slurred speech, Romberg absent, no dysmetria with cerebellar testing, vision and visual green grossly intact. Differential / pathologies of concern include Villanueva's Palsy, Unlikely Alexus Ward (no pain or rash), Unlikely CVA- no focal deficits beyond forehead involvement with facial nerve palsy, hypertensive emergency. Diagnostic studies of: -CBC, CMP, Trop I, Lactate, BNP, CRP/ESR, EKG, CTA Head & Neck, TSH, Mg++, UA. -TSH WNL -Trop I neg -BNP neg -Lactate WNL -CBC no leukocytosis, no anemia -CMP benign -CRP/ESR negative, do not suspect temporal arteritis -Mg++ WNL -UA shows no proteinuria -Tick & Lyme panel pending at sign-out -EKG without ischemic changes -CTA Head & Neck pending at sign-out Interventions of: -none. ED Course/Assessment/Plan: Patient presents with right-sided facial nerve palsy, seen by her eye doctor who diagnosed her with Villanueva's palsy as she has right-sided facial droop with forehead involvement of the idiopathic nature, her denies any alteration in her behavior, she is well outside window if this were some sort of cerebrovascular accident as the onset was 5 days ago. She is exhibiting no other focal complaints in the upper or lower extremities and is mentating at baseline. Laboratory workup is benign, tick panel is pending, CTA of the head and neck is pending at time of signout, unlikely to be any kind of CVA and I do suspect that her eye doctor at the correct diagnosis of Villanueva's palsy, patient signed out to oncoming provider Julio Dawson at shift change, likely discharge home. Findings not consistent with CVA - no deficits outside isolated facial palsy with forehead involvement consistent with Villanueva's Palsy, but CTA Head & Neck pending at sign-out. Disposition of Facial Palsy. Patient verbalized understanding of the plan and return to ED criteria and engaged in shared decision making. Medical Records Medical records reviewed: Yes I reviewed the patient's medical records. Imaging Data Radiologic Study: Imaging: CT Scan Lab Data Lab results reviewed: Yes I reviewed the patient's lab results. HPI General Date/Time Provider Initiated Documentation: 08/09/23 13:06. HPI Narrative: 77 year-old female presents to ED today by POV/ambulating with her with a chief complaint of R eyelid felt heavy with onset Thursday. She thought she was tired but upon awakening she realized it may have been the L eye that was the issue, as she cannot fully close it, has some L sided facial droop- she went to her eye doctor the next day and he diagnosed her with Villanueva's Palsy, started on eye drops. Quality described as isolated facial paralysis involvement with the forehead, no radiation to slurred speech, word-finding difficulties, weakness or sensory deficits to any other part of the body, denies confusion, per she is acting at baseline. Severity is described as unable to quantify. Palliating factors include nothing specific. Provoking factors include nothing specific. Events leading up to the incident/Associated Symptoms: Patients' blood pressure has been significantly elevated as well, which is new for her. Patient not anticoagulated. Related Data Home Medications Medication Instructions Recorded Confirmed Glucosamine \T\ Chondroitin Cap 1 ea PO DAILY ##1 06/28/13 08/09/23 atorvastatin 10 mg tablet (Lipitor) 5 mg PO DAILY #1 tab-cap 06/28/13 08/09/23 calcium carbonate 600 mg calcium 600 mg PO DAILY ##1 06/28/13 08/09/23 (1,500 mg) tablet (Calcium) cholecalciferol (vitamin D3) 25 1,000 unit PO DAILY ##1 06/28/13 08/09/23 mcg (1,000 unit) capsule omega-3 fatty acids-fish oil 340 2 ea PO DAILY ##2 06/28/13 08/09/23 mg-1,000 mg capsule (Fish Oil) cyanocobalamin (vitamin B-12) 2,500 mcg PO DAILY 12/05/16 08/09/23 2,500 mcg tablet zoledronic acid 5 mg/100 mL in 5 mg IV once a year 12/05/16 08/09/23 mannitol 5 %-water intravenous piggybck (Reclast) propranolol 10 mg tablet 10 mg PO BID 02/18/23 08/09/23 amitriptyline 10 mg tablet 10 mg PO DAILY PRN 08/09/23 08/09/23 magnesium 250 mg tablet 325 mg PO DAILY 08/09/23 08/09/23 Allergies Allergy/AdvReac Type Severity Reaction Status Date / Time naproxen Allergy Mild unknown Verified 08/09/23 13:35 Penicillins Allergy Unknown UNSURE, Unverified 08/09/23 13:35 YOUNG AGE General Stated Complaint: GenMedical BHARAT: 3 Review of Systems All systems reviewed & are unremarkable except as noted in HPI and below PFSH All Active Problems (Updated 03/12/23 @ 16:39 by Romana Jones) Migraine aura without headache (Acute) Prediabetes (Acute) Cyst (Acute) Medical History Abnormal mammogram Allergy Blood glucose elevated Breast pain, left Cervical lymphadenopathy Cervicalgia Diarrhea Disorder of pelvic girdle Diverticulosis Elbow pain, right Elevated blood pressure reading Fracture of rib of left side Gastritis determined by biopsy GERD (gastroesophageal reflux disease) Hip pain, right History of prediabetes Hyperlipidemia Hypertension Insect bite Knee pain, left Left flank pain Left groin pain Lower back pain Lymphadenopathy Migraine Pt denies Nausea Nocturia Occipital headache Ocular migraine Osteoarthritis Osteoporosis Recurrent UTI Rib pain on left side Rotator cuff tendonitis Throat clearing Visual changes Vitreous detachment Surgical History Colonoscopy - IV Sedation 10 years ago EXCISION OF CYST (07/26/13) LMF H/O esophagogastroduodenoscopy (~10/12/19) [facility] Family History Mother Osteoporosis Gallbladder disease Dementia Father CAD (coronary artery disease) Hyperlipidemia Diabetes Sister Breast cancer Social History Smoking/Tobacco Use Status: Never Smoking risk assessment performed?: Yes Alcohol Intake: current Alcohol Intake frequency: a few times a month Drug use: Never Substance use type: does not use Household members: spouse Housing: house Current gender identity: female Do you feel safe at home: Yes Do you feel safe in your relationship?: Yes Exam Narrative Exam Narrative: GENERAL APPEARANCE: Well-nourished, non-toxic, awake and alert, atraumatic, no acute distress. SKIN: Warm, pink, dry, intact, without rashes/lesions/ulcerations. HEAD: Normocephalic, atraumatic, normal hair distribution for gender/age. EYES: Pupils PERRLA, EOMs intact without nystagmus, visual green intact, vision grossly intact, normal conjunctiva, no exudates on lids/lashes. ENT: Nares patent, no circumoral cyanosis, no facial swelling NECK: Supple, trachea midline, painless cervical ROM. LUNGS/CHEST: Lungs CTA bilaterally, non-labored respirations, normal A/P diameter, symmetrical expansion, no chest wall deformity HEART (CV/PV): Regular rate and rhythm without murmur, no peripheral edema, no JVD, no carotid bruit. ABDOMEN: Soft, non-distended, no guarding. MSK: Normal ROM, no swelling/deformity to bilateral UEs or LEs, moving all extremities without weakness, no cyanosis, spine midline without tenderness, normal curvature. NEURO: Mental Status AAOx4 - alert to person, place, time, events R sided facial droop with forehead involvement, denies sensory differences Motor: No focal weakness - strength 5/5 in bilateral UEs and LEs, proximal and distal, symmetric. Sensory: sensation intact to light touch globally. Gait normal: patient ambulated without ataxia into ED room, Romberg absent PSYCH: euthymic, cooperative, pleasant, appropriate speech without slurring Course 08/09/23 13:15 CT brain & neck CTA [CT] Stat 08/09/23 13:18 ED EKG Stat 08/09/23 13:19 EKG Nursing/RT Intervention .STAT 08/09/23 13:25 BNP [NT-proBNP] Stat CRP [C-Reactive Protein] Stat Comprehensive Metabolic Panel Stat Lactate Stat Magnesium Stat TSH (W/Ref FT4) Stat Troponin [Cardiac Troponin I] Stat Complete Blood Count w/Diff [HEMO] Stat ESR [HEMO] Stat Tick & Lyme Panel [LAB] Stat 08/09/23 14:37 Urine Culture Stat Microscopic Findings [URIN] Stat Urinalysis [URIN] Stat 08/09/23 15:15 Iohexol [Omnipaque 350] 100 ml IJ DIRECTED Normal Saline - Diluent [Saline 50 ml diluent vial] 50 ml IJ .FOR DI USE Vital Signs Vital signs: Vital Signs Temperature 36.6 C 08/09/23 13:06 Pulse 83 08/09/23 13:06 Respiratory Rate 18 08/09/23 13:06 Blood Pressure 201/83 H 08/09/23 13:06 Pulse Oximetry 96 08/09/23 13:06 Temperature 36.6 C 08/09/23 13:06 Temperature Source Skin 08/09/23 13:06 Pulse 83 08/09/23 13:06 Respiratory Rate 18 08/09/23 13:06 Blood Pressure 201/83 H 08/09/23 13:06 Blood Pressure Position Sitting 08/09/23 13:06 Pulse Oximetry 96 08/09/23 13:06 Oxygen Delivery Method Room Air 08/09/23 13:06 Oxygen Flow Rate 0 08/09/23 13:06 Sign Out Sign Out Data: Sign Out Comment: Diagnosed Villanueva's Palsy, no focal deficits save for facial droop w forehead involvement, onset 5 days ago- no signs HSV, Tick panel pending. Discharge with negative CTA, vRAD read pending at shift change. +/- prednisone. Signed out to Amari Dawson at shift-change. Last updated by Natanael Amaya PA at 08/09/23 16:03
[2023-08-09 13:33] LABS: Lactate 0.7 mmol/L (0.6-1.4)
[2023-08-09 13:34] LABS: Abs Immature Grans 0.03 10^3/uL (0.0-0.06); Absolute Basophil Count 0.04 10^3/uL (0.0-0.2); Absolute Eosinophil Count 0.14 10^3/uL (0.0-0.7); Absolute Monocyte Count 0.69 10^3/uL (0.1-0.8); Absolute Neutrophil Count 5.18 10^3/uL (1.2-6.7); Basophils % 0.5; Eosinophils % 1.7; HCT 42.6 % (36.0-46.0); HGB 14.1 g/dL (11.2-15.7); Immature Grans % 0.4; Lymphocytes % 26.6; MCH 32.4 pg (27.0-33.0); MCHC 33.1 % (32.0-36.0); MCV 98 fL (80-95); MPV 9.2 fL (8.0-11.0); Monocytes % 8.3; Neutrophils % 62.5; Platelet Count 244 10^3/uL (130-400); RBC 4.35 10^6/uL (3.93-5.22); RDW 12.1 % (11.7-14.6); RDW-SD 43.6 fL; WBC 8.28 10^3/uL (4.4-10.8)
[2023-08-09 13:37] LABS: ESR 10 mm/hr (0-30)
[2023-08-09 14:00] LABS: C-Reactive Protein 0.05 mg/dL (0.0-0.3); Magnesium 2.4 mg/dL (1.8-2.4); TSH (W/Ref FT4) 1.65 uIU/mL (0.36-3.74); Troponin I < 50 ng/L (<or=60)
[2023-08-09 14:19] LABS: NT-proBNP 130 pg/mL (<300)
[2023-08-09 14:49] LABS: ALT 20 U/L (14-59); AST 17 U/L (15-37); Albumin 4.1 g/dL (3.4-5.0); Alkaline Phosphatase 96 U/L (46-116); Anion Gap 7.4 mmol/L (3-11); BUN 17 mg/dL (7-18); Bilirubin, Total 0.4 mg/dL (0.2-1.0); CO2 29.6 mmol/L (21.0-32.0); CREATININE 0.8 mg/dL (0.55-1.02); Calcium 10.1 mg/dL (8.5-10.1); Chloride 103 mmol/L (98-107); Estimated GFR 76.79 (mL/min/1.73m2); Glucose 127 mg/dL (74-106); Potassium 3.9 mmol/L (3.5-5.1); Sodium 140 mmol/L (136-145)
[2023-08-09] MEDS: Normal Saline - Diluent 50 ML VIAL IJ (15:11)
[2023-08-09] MEDS: Omnipaque 350 MG/ML 100 ML BTL IJ (15:13)
[2023-08-09 15:20] LABS: Bilirubin Negative (Negative); Blood Small (Negative); Clarity Clear (Clear); Glucose Negative (Negative); Ketones Negative (Negative); Leukocyte Esterase Small (Negative); Nitrite Negative (Negative); Specific Gravity 1.025 (1.005-1.025); Urobilinogen 0.2 mg/dL (Up to 0.2); pH 6.5 (5-8)
[2023-08-09 15:28] LABS: Bacteria Few HPF (Negative); C & S Indicated? Yes; Casts Negative LPF (Negative); Crystals Negative HPF (Negative); Epithelial Cells Few HPF (Negative); Mucus Negative (Negative)
--- NOTE | 2023-08-09 16:10 | DI.VRAD_ITS ---
PROCEDURE INFORMATION: Exam: CTA Head With Contrast, Venography Exam date and time: 08/09/2023 3:03 PM Age: 77 years old Clinical indication: Other: Diagnosed with devi's palsy, R facial droop TECHNIQUE: Imaging protocol: Computed tomography angiography of the head with contrast. Exam focused on the veins. 3D rendering (Not supervised by radiologist): MIP and/or 3D reconstructed images were created by the technologist. Contrast material: OMNIQAQUE; Contrast volume: 100 ml; Contrast route: INTRAVENOUS (IV); COMPARISON: [place] [facility] 10/29/2018 1:00 PM FINDINGS: Superior sagittal sinus: Patent. Straight sinus: Patent. Transverse sinuses: Patent. Sigmoid sinuses: Patent. Internal jugular veins: Limited visualized internal jugular veins are patent. Brain: No definite mass, mass effect, or midline shift. Cerebral ventricles: No ventriculomegaly. Soft tissues: Unremarkable. IMPRESSION: No evidence for central intracranial vascular stenosis or occlusion. PROCEDURE INFORMATION: Exam: CTA Neck With Contrast Exam date and time: 08/09/2023 3:03 PM Age: 77 years old Clinical indication: Other: Diagnosed with devi's palsy, R facial droop TECHNIQUE: Imaging protocol: Computed tomographic angiography of the neck with contrast. Exam focused on the cervical segments of the vasculature. 3D rendering (Not supervised by radiologist): MIP and/or 3D reconstructed images were created by the technologist. Contrast material: OMNIQAQUE; Contrast volume: 100 ml; Contrast route: INTRAVENOUS (IV); COMPARISON: [place] [facility] 10/29/2018 1:00 PM FINDINGS: Right common carotid artery: No stenosis. No dissection or occlusion. Right internal carotid artery: No stenosis of the extracranial segment. No dissection or occlusion. Right external carotid artery: No occlusion or stenosis of the origin. Left common carotid artery: No stenosis. No dissection or occlusion. Left internal carotid artery: No stenosis of the extracranial segment. No dissection or occlusion. Left external carotid artery: No occlusion or stenosis of the origin. Right vertebral artery: Right vertebral artery dominant. Left vertebral artery: No stenosis. No dissection or occlusion. Thyroid: Tiny low-density right lobe thyroid lesion. Soft tissues: Normal. No significant soft tissue swelling. Bones/joints: No acute fracture. IMPRESSION: No evidence for hemodynamically significant stenosis or occlusion. REFERENCES: NASCET CRITERIA. The degree of stenosis in the cervical segment of the internal carotid artery is based on NASCET criteria. Normal is no stenosis. Mild is less than 50% stenosis. Moderate is 50-69% stenosis. Severe is 70% to 99% stenosis. Total occlusion is no detectable patent lumen. Dictated and Authenticated by: Genevieve Lozano MD. Ordering:PRUDENCE Santoyo MD
--- NOTE | 2023-08-09 17:08 | W.EDPROG ---
Date of service: 08/09/23 Time of Service: 16:00 Medical Decision Making Patient signed out to me pending head CT. Workup otherwise negative. Patient reported symptoms that started on Thursday and saw physician credentialing specialist who diagnosed with Villanueva's palsy. Today patient was discussing her symptoms with her daughter who is a RN out of state and stated that she should have an emergency evaluation. Head CT negative, will start patient on steroids. No other concerning findings noted on speaking to patient and significant other. Patient is already using eyedrops for moisturizer. Did place patient on list to follow-up with primary care provider for recheck of symptoms. After discussion of diagnosis and plan of care patient has no further needs, questions, or concerns and states clear understanding to return to the emergency department for any worsening symptoms. This documentation was generated using [employer] dictation system, please disregard any oddities of phrase or misspellings. Imaging Data Radiologic Study: Imaging: CT Scan Radiologist's impression: Exam(s) PROCEDURE INFORMATION: Exam: CTA Head With Contrast, Venography Exam date and time: 08/09/2023 3:03 PM Age: 77 years old Clinical indication: Other: Diagnosed with villanueva's palsy, R facial droop TECHNIQUE: Imaging protocol: Computed tomography angiography of the head with contrast. Exam focused on the veins. 3D rendering (Not supervised by radiologist): MIP and/or 3D reconstructed images were created by the technologist. Contrast material: OMNIQAQUE; Contrast volume: 100 ml; Contrast route: INTRAVENOUS (IV); COMPARISON: SC NM bone scan whole body grp 10/29/2018 1:00 PM FINDINGS: Superior sagittal sinus: Patent. Straight sinus: Patent. Transverse sinuses: Patent. Sigmoid sinuses: Patent. Internal jugular veins: Limited visualized internal jugular veins are patent. Brain: No definite mass, mass effect, or midline shift. Cerebral ventricles: No ventriculomegaly. Soft tissues: Unremarkable. IMPRESSION: No evidence for central intracranial vascular stenosis or occlusion. PROCEDURE INFORMATION: Exam: CTA Neck With Contrast Exam date and time: 08/09/2023 3:03 PM Age: 77 years old Clinical indication: Other: Diagnosed with villanueva's palsy, R facial droop TECHNIQUE: Imaging protocol: Computed tomographic angiography of the neck with contrast. Exam focused on the cervical segments of the vasculature. 3D rendering (Not supervised by radiologist): MIP and/or 3D reconstructed images were created by the technologist. Contrast material: OMNIQAQUE; Contrast volume: 100 ml; Contrast route: INTRAVENOUS (IV); COMPARISON: SC NM bone scan whole body grp 10/29/2018 1:00 PM FINDINGS: Right common carotid artery: No stenosis. No dissection or occlusion. Right internal carotid artery: No stenosis of the extracranial segment. No dissection or occlusion. Right external carotid artery: No occlusion or stenosis of the origin. Left common carotid artery: No stenosis. No dissection or occlusion. Left internal carotid artery: No stenosis of the extracranial segment. No dissection or occlusion. Left external carotid artery: No occlusion or stenosis of the origin. Right vertebral artery: Right vertebral artery dominant. Left vertebral artery: No stenosis. No dissection or occlusion. Thyroid: Tiny low-density right lobe thyroid lesion. Soft tissues: Normal. No significant soft tissue swelling. Bones/joints: No acute fracture. IMPRESSION: No evidence for hemodynamically significant stenosis or occlusion. REFERENCES: NASCET CRITERIA. The degree of stenosis in the cervical segment of the internal carotid artery is based on NASCET criteria. Normal is no stenosis. Mild is less than 50% stenosis. Moderate is 50-69% stenosis. Severe is 70% to 99% stenosis. Total occlusion is no detectable patent lumen. Dictated and Authenticated by: Genevieve Lozano MD. Lab Data Lab results reviewed: Yes I reviewed the patient's lab results. Sign Out Sign Out Data: Sign Out Comment: Diagnosed Villanueva's Palsy, no focal deficits save for facial droop w forehead involvement, onset 5 days ago- no signs HSV, Tick panel pending. Discharge with negative CTA, vRAD read pending at shift change. +/- prednisone. Signed out to Amari Dawson at shift-change. Last updated by Natanael Amaya PA at 08/09/23 16:03 Discharge Plan Disposition Patient Disposition: Home Discharge Details Clinical Impression: Villanueva's palsy Primary Care Provider: Radha Maria V ED Provider: Julio Dawson Home Meds and New Rx's Prescriptions: New prednisone 20 mg tablet 40 mg PO DAILY 7 Days Qty: 14 0RF Continued atorvastatin [Lipitor] 10 MG tablet 5 mg PO DAILY Qty: 1 calcium carbonate [Calcium 600] 600 MG tablet 600 mg PO DAILY Qty: 1 cholecalciferol (vitamin D3) 1,000 UNIT capsule 1,000 unit PO DAILY Qty: 1 Fish Oil 1 EACH capsule 2 ea PO DAILY Qty: 2 GLUCOSAMINE \T\ CHONDROITIN CAP 1 EACH capsule 1 ea PO DAILY Qty: 1 cyanocobalamin (vitamin B-12) 2,500 MCG tablet 2,500 mcg PO DAILY propranolol 10 mg tablet 10 mg PO BID magnesium 250 mg tablet 325 mg PO DAILY amitriptyline 10 mg tablet 10 mg PO DAILY PRN Patient Comments: TAKE 1 TABLET BY MOUTH EVERY NIGHT NEEDED FOR GI SYMPTOMS Discontinued zoledronic ajjt-aykidlit-zlsux [Reclast] 5 MG/100 ML piggyback 5 mg IV once a year Patient Comments: 10/11/19 Pt states last dose 2018. PG 4.14.17 not sure of dosage, pt states she gets an infusion once a year.HE Discharge Instructions Instructions: Villanueva Palsy (ED) Additional Instructions: Please continue to monitor symptoms and if you have any new or significant worsening of symptoms or other areas of neurological involvement it is very important to return the emergency department for reassessment. Otherwise follow-up with your primary care provider preferably later this week for recheck of your symptoms Referrals: Radha Maria MD [Primary Care Provider] - 5 days Discharge Data Discharge Date/Time-TO BE ENTERED AT DEPARTURE: 08/09/23 17:21
--- NOTE | 2023-08-09 17:13 | NUR.NOTE ---
Referral faxed to Radha Maria for a recheck on Kimper Palsy sometime next week.
[2023-08-09] MEDS: predniSONE 20 MG TAB 60 MG PO (17:14)
[2023-08-11 10:33] LABS: Lyme Ab w Rflx to Lyme Confirm Negative (Negative)
[2023-08-12 21:39] LABS: Anaplasma phagocytophilum Negative (Negative); B. miyamotoi PCR Negative (Negative); Babesia divergens/MO-1 Negative (Negative); Babesia duncani Negative (Negative); Babesia microti Negative (Negative); Ehrlichia chaffeensis Negative (Negative); Ehrlichia ewingii/canis Negative (Negative); Ehrlichia muris eauclairensis Negative (Negative)
== END 2023-08-09 17:21 | disposition home or self-care (01) ==
PROVIDERS: Physician Assistant; Emergency Provider Nurse Practitioner Family; PCP Family Medicine
DX: G51.0 Bell's palsy (principal)
CPT/HCPCS: 00123; 36415; 70496; 70498; 80053; 85652; 87798; 93005; 99285; 81003; 81015; 83605; 83735; 83880; 84443; 84484; 85025; 86140; 86618; 87086; 93010; 99284; J3490; J7512

== ENCOUNTER → 2024-02-01 02:29 | Outpatient (CLI) | payer MEDICARE, BC, SELFPAY ==
--- NOTE | 2024-02-01 | DI.DEXA_ITS ---
Exam(s) XR DEXA BONE DENSITY W/WO [place] EXAM: XR DEXA BONE DENSITY W/WO [place] CLINICAL HISTORY: Z78.0 asymptomatic menopausal state,SCREENING FOR OSTEOPOROSIS TECHNIQUE: COMPARISON: DX DEXA BONE DENSITY WITH [place] from 07/17/2014 FINDINGS: Lateral Spine Image: Unremarkable. No compression deformities identified. Left hip: Total T-Score: -2.5. This compares to -3.1 on the prior examination. Total Z-Score: -0.7 T- and Z-scores: Findings are consistent with osteoporosis. Lumbar Spine: Total T-Score: -2.9. This compares to -3.0 on the prior examination. Total Z-Score: -0.4 T- and Z-scores: Findings are consistent with osteoporosis. IMPRESSION: Findings of osteoporosis in the left hip and lumbar spine.
== END ==
PROVIDERS: PCP Family Medicine; Visit Provider Family Medicine
DX: Z78.0 Asymptomatic menopausal state (principal); Z13.820 Encounter for screening for osteoporosis; M81.0 Age-related osteoporosis without current pathological fracture
CPT/HCPCS: 77080

== ENCOUNTER 2024-04-08 12:37 | Outpatient (CLI) | payer MEDICARE, BC, SELFPAY ==
--- NOTE | 2024-04-08 | DI.RAD_ITS ---
Exam(s) XR WRIST LT COMPLETE EXAM: XR WRIST LT COMPLETE CLINICAL HISTORY: Lt wrist injury. TECHNIQUE: 2D digital imaging was performed of the left wrist. Three images were obtained. PA, obl ique and lateral views were obtained. COMPARISON: No exams were available for comparison FINDINGS: BONES: There is an acute comminuted fracture of the distal radius through the metaphysis. There is i mpaction of the fracture noted. There is also a nondisplaced fracture of the ulnar styloid process. No bony destructive lesion is seen. JOINTS: The carpal bones are normally aligned. SOFT TISSUE: Soft tissue swelling of the wrist is present. IMPRESSION: Distal radial and ulnar fractures as described. DATA REPOSITORY: RADIATION DOSE DELIVERED:
== END 2024-04-08 12:57 ==
LOC: DI 12:37
PROVIDERS: PCP Family Medicine; Visit Provider Specialist/Technologist Athletic Trainer
DX: S52.352A Displaced comminuted fracture of shaft of radius, left arm, initial encounter for closed fracture (principal); X58.XXXA Exposure to other specified factors, initial encounter
CPT/HCPCS: 73110

== ENCOUNTER 2024-04-15 09:18 | Outpatient (CLI) | payer MEDICARE, BC, SELFPAY ==
--- NOTE | 2024-04-15 08:15 | DI.RAD_ITS ---
Exam(s) XR WRIST LT COMPLETE EXAM: XR WRIST LT COMPLETE CLINICAL HISTORY: left wrist fracture. TECHNIQUE: 2D digital imaging was performed. Three views. COMPARISON: CR XR WRIST LT COMPLETE from 04/08/2024 FINDINGS: BONES: No change in alignment of the distal radial and ulnar styloid fractures. No new abnormalities . No bony destructive lesion is seen. JOINTS: The carpal bones are normally aligned. SOFT TISSUE: Normal. IMPRESSION: Stable distal radial and ulnar styloid fractures. DATA REPOSITORY: RADIATION DOSE DELIVERED:
== END 2024-04-15 09:19 | disposition home or self-care (01) ==
LOC: DIORS 09:19
PROVIDERS: PCP Family Medicine; Referring Provider Family Medicine; Visit Provider Physician Assistant
DX: S52.502A Unspecified fracture of the lower end of left radius, initial encounter for closed fracture (principal); W19.XXXA Unspecified fall, initial encounter
CPT/HCPCS: 99213; 73110

== ENCOUNTER 2024-04-21 15:17 | Outpatient (CLI) | payer MEDICARE, BC, SELFPAY ==
--- NOTE | 2024-04-21 10:45 | DI.RAD_ITS ---
Exam(s) XR WRIST LT COMPLETE EXAM: XR WRIST LT COMPLETE INDICATION: F/U FRACTURE. COMPARISON: CR XR WRIST LT COMPLETE from 04/15/2024 TECHNIQUE: 2D digital imaging was performed. Three views. FINDINGS: Stable alignment of comminuted intra-articular fracture of the distal radius. Stable alignment ulnar styloid fracture. DATA REPOSITORY: RADIATION DOSE DELIVERED:
== END 2024-04-21 15:18 | disposition home or self-care (01) ==
LOC: DIORS 15:18
PROVIDERS: PCP Family Medicine; Referring Provider Family Medicine; Visit Provider Student in an Organized Health Care Education/Training Program
DX: S52.502D Unspecified fracture of the lower end of left radius, subsequent encounter for closed fracture with routine healing (principal); X58.XXXD Exposure to other specified factors, subsequent encounter
CPT/HCPCS: 99213; 73110

== ENCOUNTER 2024-04-27 00:37 | Outpatient (CLI) | payer MEDICARE, BC, SELFPAY ==
--- NOTE | 2024-04-27 06:15 | DI.RAD_ITS ---
Exam(s) XR FOOT RT COMPLETE EXAM: XR FOOT RT COMPLETE CLINICAL HISTORY: Right foot pain/paresthesia,m79.671,r20.2. TECHNIQUE: 2D digital imaging was performed of the right foot. Three images were obtained. AP, obl ique and lateral views were obtained. COMPARISON: No exams were available for comparison FINDINGS: BONES: No acute fracture is present. No bony destructive lesion is seen. There is an enthesophyte at the posterior calcaneus. There is a bone island in the distal tibia. JOINTS: No dislocation present. Degenerative changes are seen at the 1st MTP joint with joint space n arrowing present. There is also an osteophyte at the dorsal aspect of the metatarsal head. SOFT TISSUE: Normal. IMPRESSION: Degenerative changes seen at the 1st MTP joint. DATA REPOSITORY: RADIATION DOSE DELIVERED:
== END 2024-04-27 00:57 ==
LOC: DI 00:37
PROVIDERS: PCP Family Medicine; Visit Provider Podiatrist
DX: M79.671 Pain in right foot (principal); R20.2 Paresthesia of skin
CPT/HCPCS: 73630

== ENCOUNTER 2024-05-20 11:07 | Outpatient (CLI) | payer MEDICARE, BC, SELFPAY ==
--- NOTE | 2024-05-20 11:03 | DI.RAD_ITS ---
Exam(s) XR WRIST LT COMPLETE EXAM: XR WRIST LT COMPLETE CLINICAL HISTORY: left distal radius fracture. TECHNIQUE: 2D digital imaging was performed of the left wrist. Three images were obtained. PA, obl ique and lateral views were obtained. COMPARISON: CR XR WRIST LT COMPLETE from 04/21/2024 FINDINGS: BONES: There is no change in alignment of the fracture involving the distal left radius. There is mi ld stable dorsal angulation of the fracture. The osseous density at the tip of the ulnar styloid pro cess is unchanged. No bony destructive lesion is seen. JOINTS: The carpal bones are normally aligned. SOFT TISSUE: Normal. IMPRESSION: Stable distal radial and ulnar fractures. DATA REPOSITORY: RADIATION DOSE DELIVERED:
== END 2024-05-20 11:08 | disposition home or self-care (01) ==
LOC: DIORS 11:07
PROVIDERS: PCP Family Medicine; Referring Provider Family Medicine; Visit Provider Physician Assistant
DX: S52.502D Unspecified fracture of the lower end of left radius, subsequent encounter for closed fracture with routine healing (principal); X58.XXXD Exposure to other specified factors, subsequent encounter
CPT/HCPCS: 99213; 73110

== ENCOUNTER 2024-06-30 15:18 | Outpatient (CLI) | payer MEDICARE, BC, SELFPAY ==
--- NOTE | 2024-06-30 14:30 | DI.RAD_ITS ---
Exam(s) XR WRIST LT COMPLETE EXAM: XR WRIST LT COMPLETE INDICATION: F/U L DISTAL RAD FX. COMPARISON: CR XR WRIST LT COMPLETE from 05/20/2024 TECHNIQUE: 2D digital imaging was performed. Three views. FINDINGS: Continued healing of the distal radial fracture. No change in the alignment. Ulnar styloid fracture s unchanged. No new abnormalities. DATA REPOSITORY: RADIATION DOSE DELIVERED:
== END 2024-06-30 15:19 | disposition home or self-care (01) ==
LOC: DIORS 15:18
PROVIDERS: PCP Family Medicine; Referring Provider Family Medicine; Visit Provider Student in an Organized Health Care Education/Training Program
DX: S52.502D Unspecified fracture of the lower end of left radius, subsequent encounter for closed fracture with routine healing (principal); X58.XXXD Exposure to other specified factors, subsequent encounter
CPT/HCPCS: 99213; 73110

== ENCOUNTER → 2024-09-15 12:48 | Outpatient (BNVA) | payer MEDICARE, BC, SELFPAY | PROVIDERS: PCP Family Medicine; Referring Provider Family Medicine; Visit Provider Nurse Practitioner Gerontology | DX: N36.2 Urethral caruncle (principal) | CPT/HCPCS: 99214 ==

== ENCOUNTER 2024-09-21 03:51 | Outpatient (RCR) | payer MEDICARE, BC, SELFPAY ==
[2024-09-21] MEDS: ZOLEDRONIC ACID/MANNITOL/WATER 5 MG/100 ML BTL 300 MG IVPB (08:05)
[2024-09-21] MEDS: Normal Saline Flush 10 ML SYR IVP (08:05)
== END 2024-09-23 23:59 | disposition home or self-care (01) ==
LOC: INF 03:51
PROVIDERS: PCP Family Medicine; Visit Provider Family Medicine
DX: M81.0 Age-related osteoporosis without current pathological fracture (principal)
CPT/HCPCS: 96365; J3489

== ENCOUNTER → 2024-10-05 07:52 | Outpatient (BNVA) | payer MEDICARE, BC, SELFPAY | PROVIDERS: PCP Family Medicine; Referring Provider Family Medicine; Visit Provider Nurse Practitioner Gerontology | DX: N36.2 Urethral caruncle (principal) | CPT/HCPCS: 99214 ==

== ENCOUNTER → 2024-10-26 09:19 | Outpatient (BNVA) | payer MEDICARE, BC, SELFPAY | PROVIDERS: PCP Family Medicine; Referring Provider Family Medicine; Visit Provider Nurse Practitioner Gerontology | DX: N36.2 Urethral caruncle (principal) | CPT/HCPCS: 99213 ==

== ENCOUNTER → 2025-01-04 08:19 | Outpatient (BNVA) | payer MEDICARE, BC, SELFPAY | PROVIDERS: PCP Family Medicine; Referring Provider Family Medicine; Visit Provider Nurse Practitioner Gerontology | DX: N36.2 Urethral caruncle (principal) | CPT/HCPCS: 99213 ==

== ENCOUNTER 2025-03-31 13:02 | Outpatient (REF) | payer MEDICARE, BC, SELFPAY ==
[2025-03-31 15:45] LABS: ALT 21 U/L (14-59); AST 20 U/L (15-37); Albumin 3.6 g/dL (3.4-5.0); Alkaline Phosphatase 69 U/L (46-116); Anion Gap 9.2 mmol/L (3-11); BUN 13 mg/dL (7-18); Bilirubin, Total 0.5 mg/dL (0.2-1.0); CO2 24.8 mmol/L (21.0-32.0); Calcium 8.7 mg/dL (8.5-10.1); Calculated LDL 81 mg/dL (<100); Chloride 108 mmol/L (98-107); Cholesterol 168 mg/dL (<200); Estimated GFR 92.39 (mL/min/1.73m2); Glucose 110 mg/dL (74-106); HDL Cholesterol 70 mg/dL (>or=50); Potassium 3.8 mmol/L (3.5-5.1); Sodium 142 mmol/L (136-145); Total Protein 6.6 g/dL (6.4-8.2); Triglyceride 88 mg/dL (<150)
[2025-03-31 16:06] LABS: Hemoglobin A1C 5.9 % (<5.7)
== END 2025-03-31 13:03 | disposition home or self-care (01) ==
LOC: NCHCN 13:02
PROVIDERS: PCP Family Medicine; Visit Provider Family Medicine
DX: R73.03 Prediabetes (principal); E78.5 Hyperlipidemia, unspecified; I10 Essential (primary) hypertension
CPT/HCPCS: 80053; 80061; 83036

== ENCOUNTER 2025-04-18 02:13 | Outpatient (CLI) | payer MEDICARE, BC, SELFPAY ==
--- NOTE | 2025-04-18 | DI.MAMMO_ITS ---
Exam(s) MAMMO SCREENING EXAM: MAMMO SCREENING CLINICAL HISTORY: SCREENING MAMMO Z12.31 TECHNIQUE: Bilateral full field digital CC and MLO mammographic images were obtained with 3D tomosynthesis and utilizing computer aided detection (CAD). COMPARISON: Comparison is made with prior examinations. FINDINGS: Masses/Architectural Distortion: No suspicious masses or areas of architectural distortion are present. Microcalcifications: No suspicious pleomorphic-type are seen. Skin Thickening/Nipple Retraction: None. IMPRESSION: 1. No significant interval change with no specific features of malignancy noted. 2. Unless there is more urgent need, screening mammography is recommended, as per [employer] guidelines. BI-RADS Category 1 - Negative Breast Density - Category C - The breast are heterogeneously dense, which may obscure small masses. Breast density Category C or D implies that the patient has dense breast tissue. Dense breast tissue can make it harder to find cancer on a mammogram. Dense breast tissue is also associated with an increased risk of breast cancer. This information about the result of the mammogram report was provided to the patient to raise their awareness. Use this report when you speak with the patient about their risks for breast cancer, which includes their family history. At that time, you may recommend additional screening tests (Ultrasound or MRI) as these tests may add significant information. A negative radiographic report should not delay biopsy if a dominant or clinically suspicious mass is present. Up to ten percent of cancers are not identified on mammography. A negative report may reinforce clinical impression. Adenosis and dense breasts may obscure an underlying neoplasm. False positive reports average 6 to 10%. Patient will receive a letter notifying them of these results.
== END 2025-04-18 02:33 ==
LOC: DI 02:14
PROVIDERS: PCP Family Medicine; Visit Provider Family Medicine
DX: Z12.31 Encounter for screening mammogram for malignant neoplasm of breast (principal); R92.333 Mammographic heterogeneous density, bilateral breasts
CPT/HCPCS: 77063; 77067

== ENCOUNTER 2025-05-25 13:41 | Outpatient (REF) | payer MEDICARE, BC, SELFPAY ==
[2025-05-25 15:25] LABS: C-Reactive Protein < 0.50 mg/dL (<or=0.5); Creatine Kinase 92 U/L (26-192)
== END 2025-05-25 13:42 | disposition home or self-care (01) ==
LOC: NCHCN 13:41
PROVIDERS: PCP Family Medicine; Visit Provider Family Medicine
DX: M79.605 Pain in left leg (principal)
CPT/HCPCS: 82550; 86140